=== PATIENT | female | born 1980 | race Two or more races ===

== ENCOUNTER 2024-03-22 18:33 | Emergency (ER) | payer MEDICAID, OTHER ==
[~2024-03-22] VITALS: Ht 167.6 cm; Wt 106.0 kg
[2024-03-22] MEDS ORDERED: HYDR-4902 PO (23:39)
[2024-03-22] MEDS ORDERED: ZOFR4T PO (23:39)
[2024-03-22] MEDS: PROCHLORPERAZINE MALEATE 10 MG TAB PO ONE (23:45)
[2024-03-22] MEDS: HYDROcodone-ACET 5/325MG TAB PO ONE (23:45)
[2024-03-23] MEDS: KETOROLAC TROMETH 60MG/2ML VIAL IM ONE (00:20)
[2024-03-23 01:17] VITALS: TEMP 98
[2024-03-23] MEDS: cloNIDine HCL 0.1 MG TAB PO ONE (01:30)
[2024-03-23 02:30] VITALS: BP 155/83; PULSE 63; RESP 18; O2SAT 98
== END 2024-03-23 03:29 | disposition home or self-care (01) ==
LOC: ER 18:33
DX: R51.9 Headache, unspecified (principal)
CPT/HCPCS: 70450; 96372; 99285; J1885

== ENCOUNTER 2025-02-21 21:35 | Emergency (ER) | payer SELFPAY ==
[~2025-02-21] VITALS: Ht 157.5 cm; Wt 106.5 kg
[~2025-02-21 21:35] MED LIST: HYDR-4902 PO; ZOFR4T PO
[2025-02-21 22:54] LABS: Basophils # (auto) 0.1 10 ^3/uL (0-0.2); Basophils % (auto) 1.1 % (0.0-2.0); Eosinophils # (auto) 0.1 10 ^3/uL (0-0.8); Eosinophils % (auto) 1.5 % (0.0-7.0); Hematocrit 33.7 % (36.0-46.0); Hemoglobin 10.7 g/dL (12.2-16.2); Lymphocytes # (auto) 2.9 10 ^3/uL (0.4-5.4); Lymphocytes % (auto) 28.7 % (10.0-50.0); Mean Corpuscular Hemoglobin 21.7 pg (28.0-32.0); Mean Corpuscular Hgb Conc. 31.9 g/dL (32.0-36.0); Monocytes # (auto) 0.6 10 ^3/uL (0-1.3); Monocytes % (auto) 6.2 % (0.0-12.0); Neutrophils # (auto) 6.2 10 ^3/uL (1.6-8.6); Neutrophils % (auto) 62.5 % (37.0-80.0); Nucleated Red Blood Cells % 0.1 %; Platelet Count (auto) 360 10^3/uL (140-450); Red Blood Cells 4.96 10^6/uL (4.0-5.20); Red Cell Distribution Width 16.8 % (11.8-14.3)
[2025-02-21 23:23] LABS: Chloride 101 mmol/L (98-107); Sodium 138 mmol/L (136-145)
[2025-02-21 23:24] LABS: Anion Gap 10 (5-15); Calcium 9.5 mg/dL (8.7-10.4); Carbon Dioxide 27 mmol/L (20-31); Potassium 3.3 mmol/L (3.5-5.1)
[2025-02-21 23:29] LABS: BUN/Creatinine Ratio 18.2 (10.0-20.0); Blood Urea Nitrogen 12 mg/dL (9-23)
[2025-02-21 23:31] LABS: Glucose 186 mg/dL (74-106)
--- NOTE | 2025-02-22 00:31 | ED.PDOC ---
History of Present Illness HPI Comments 44-year-old, morbidly obese female, with a history of DM and HTN, presents with complaint of hypertension, hyperglycemia, chest pain, headache, congestion, and nausea, since Saturday night She endorses on checking and noticing her blood pressure and blood glucose levels being elevated (160s/90s and 230, respe ctively), today, after having other aforementioned symptoms since the evening of February 19, 2025. She further reports on having sensation of her ears being �clogged" and describes her pain as pressure-like in quality. She informs of running out of her losartan on February 17, 2025 and recently obtaining a refill and taking her prescription dosage, today, at 1500. She is having any shortness of breath, palpitations, vision or speech changes, vomiting, or further associated symptoms at this time. Chief Complaint: High Blood Pressure Time Seen by MD: 22:20 Primary Care Provider: NONE Reviewed Notes: Nurses Notes, Medications, Allergies Allergies: Coded Allergies: NO KNOWN ALLERGIES (Unverified , 03/22/24) Home Meds Active Scripts Ondansetron Odt 4MG Tab (ZOFRAN PO) 4 Mg Tb, 1 TAB PO Q8HPRN PRN, #8 TAB as needed for nausea vomiting ODT TAB-DISSOLVE IN MOUTH, THEN SWALLOW Prov:FE CARPENTER NP 03/22/24 Hydrocodone-Acetaminophen (Hydrocodone Bitartrate/AC 5-325 mg) 1 Tab Tab, 1 TAB PO Q6HPRN PRN, #8 TAB as needed for pain Prov:FE CARPENTER VENDING STAND SUPERVISOR 03/22/24 Information Source: Patient Mode of Arrival: Ambulatory Severity: Moderate Duration: Since onset Prehospital treatment: None Review of Systems: REVIEW OF SYSTEMS: No fever, no chills, HEENT: Congestion. No neck pain, no blurred vision Cardiac: chest pain. No palpitations. Lungs: No shortness of breath, GI: Nausea. No abdominal pain, no vomiting Musculoskeletal: No joint pain , no back pain Skin: No rash, no wound Neuro: headache, no dizziness, no syncope Vital Signs Vital Signs Date Time Temp Pulse Resp B/P (MAP) Pulse Ox O2 Delivery O2 Flow Rate FiO2 02/22/25 02:25 98.2 72 16 136/61 (86) 97 98.2 02/22/25 00:47 Room Air* 0 21 Physical Exam General: Awake, alert and oriented. No acute distress. Skin: Skin in warm, dry and intact without rashes or lesions. HEENT: The head is normocephalic and atraumatic. Conjunctivae are clear without exudates or hemorrhage. Sclera is non-icteric. Neck: Normal range of motion. No JVD. Cardiac: Regular rate Respiratory: No signs of respiratory distress. No Stridor. Gastrointestinal: No abdominal tenderness. Extremities: Upper and lower extremities are atraumatic in appearance without deformity. Neurological: The patient is awake, alert and oriented to person, place, and time with normal speech. Speech is clear. There is no facial asymmetry. Psychiatric: Appropriate mood and affect. Good judgement and insight. Past Medical History PAST MEDICAL HISTORY: DM, HTN Surgical History: Denies all surgeries SERVICES TECH History: No Pertinent SERVICES TECH History Family History Family History: Unknown Social History Smoker: Non-Smoker Alcohol: Denies ETOH Use Drugs: Denies Drug Use Lives In: Home Was a procedure done? Was a procedure done?: No EKG EKG : Pulse Rate (adult): 69 Jud: Normal Cardiac Rhythm: NSR Block: None Hypertrophy: None ST: Normal Differential Dx Considerations may include: Differential diagnoses considered include acute ischemic coronary syndrome, aortic dissection, cardiac tamponade, mediastinitis, pulmonary embolus, pneumothorax, tension pneumothorax, esophageal rupture, coronary artery vasospasm, myocarditis, pericarditis, pneumonia, pulmonary edema, esophageal tear, pancreatitis, aortic stenosis, dilated cardiomyopathy, hypertrophic cardiomyopathy, mitral valve prolapse, malignancy, pleuritis, pneumomediastinum, primary pulmonary hypertension, cholecystitis, esophageal spasm, esophagus, gastritis, GERD, peptic ulcer disease, costochondritis, fibromyalgia, rib fracture, herpes zoster, radicular syndromes, thoracic outlet syndrome, somatization. X-Ray, Labs, Meds, VS Vital Signs Date Time Temp Pulse Resp B/P (MAP) Pulse Ox O2 Delivery O2 Flow Rate FiO2 02/22/25 02:25 98.2 72 16 136/61 (86) 97 98.2 02/22/25 00:47 75 20 98 Room Air* 0 21 02/22/25 00:37 98.6 76 20 157/87 (110) 96 98.6 02/22/25 00:31 69 02/21/25 22:09 69 02/21/25 21:55 98.0 76 16 161/87 (111) 96 98.0 Lab Test 02/21/25 22:42 Range/Units White Blood Count 10.0 4.4-10.8 10^3/uL Red Blood Count 4.96 4.0-5.20 10^6/uL Hemoglobin 10.7 L 12.2-16.2 g/dL Hematocrit 33.7 L 36.0-46.0 % Mean Corpuscular Volume 68.0 L 80.0-100.0 fL Mean Corpuscular Hemoglobin 21.7 L 28.0-32.0 pg Mean Corpuscular Hemoglobin Concent 31.9 L 32.0-36.0 g/dL Red Cell Distribution Width 16.8 H 11.8-14.3 % Platelet Count 360 140-450 10^3/uL Mean Platelet Volume 7.7 6.9-10.8 fL Neutrophils (%) (Auto) 62.5 37.0-80.0 % Lymphocytes (%) (Auto) 28.7 10.0-50.0 % Monocytes (%) (Auto) 6.2 0.0-12.0 % Eosinophils (%) (Auto) 1.5 0.0-7.0 % Basophils (%) (Auto) 1.1 0.0-2.0 % Neutrophils # (Auto) 6.2 1.6-8.6 10 ^3/uL Lymphocytes # (Auto) 2.9 0.4-5.4 10 ^3/uL Monocytes # (Auto) 0.6 0-1.3 10 ^3/uL Eosinophils # (Auto) 0.1 0-0.8 10 ^3/uL Basophils # (Auto) 0.1 0-0.2 10 ^3/uL Nucleated Red Blood Cells 0.1 % Sodium Level 138 136-145 mmol/L Potassium Level 3.3 L 3.5-5.1 mmol/L Chloride Level 101 98-107 mmol/L Carbon Dioxide Level 27 20-31 mmol/L Anion Gap 10 5-15 Blood Urea Nitrogen 12 9-23 mg/dL Creatinine 0.66 0.550-1.02 mg/dL Glomerular Filtration Rate Calc 109 >90 mL/min BUN/Creatinine Ratio 18.2 10.0-20.0 Serum Glucose 186 H 74-106 mg/dL Calcium Level 9.5 8.7-10.4 mg/dL Troponin I High Sensitivity 3 L </=34 ng/L Current Medications Medications (Trade) Dose Ordered Sig/Michelle Route Start Time Stop Time Status Last Admin Potassium Bicarbonate (Klor-Con/Ef) 50 meq ONCE ONCE PO 02/22/25 00:15 02/22/25 00:16 DC 02/22/25 00:44 [place] [id number] Ph: [phone] DIAGNOSTIC IMAGING Diagnostic Imaging Report : [id number] Signed PATIENT: TERE ROBLESACCT: [id number] UNIT: [id number] : 1980 LOC: ER ROOM / BED: / AGE / SEX: 44 / F ADM STATUS: REG ER SERVICE 24 ORDERING PHYSICIAN: MATTHEW MIMS MD PROCEDURE(s): CXR1 - CHEST XRAY 1 VIEW REASON: Chest pain ORDER NUMBER(s): [id number], ACCESSION NUMBER(s): [id number] CHEST RADIOGRAPH Indication: Chest pain Technique: Single frontal view of the chest was obtained COMPARISON: None FINDINGS: Lines and Tubes: None Lungs: Clear Pleura: No effusion. No pneumothorax. Cardiomediastinal contours: Unremarkable IMPRESSION: No abnormality demonstrated. ATED BY: STEVEN HERNANDEZ MD DICTATED DATE/TIME: 02/22/2533 SIGNED BY: STEVEN HERNANDEZ MD SIGNED DATE/TIME: 02/22/2533 CC: Images Reviewed?: Images reviewed and evaluated by me (Independent interpretation of chest x-ray: No acute disease) Time of 1ST Reevaluation: 22:50 Reevaluation 1ST: Unchanged Patient Education/Counseling: Need For Follow Up Family Education/Counseling: No Family Present Departure 1 Departure Time of Disposition: 01:27 Impression: Primary Impression: Chest pain Disposition: 01 HOME / SELF CARE / HOMELESS Condition: Stable Additional Instructions: INSTRUCCIONES DE AUBREE DE Urgencias Instrucciones: Kimberlee atentamente todas las instrucciones proporcionadas en vicky paquete. Aunque le hayan dado el aubree del Departamento de Emergencias, esto no significa que tenga un "certificado de buena james". Hoy no se gonzalez realizado franc�n diagn�stico definitivo para noemy s�ntomas. Es posible que est�s en proceso de desarrollar reji enfermedad grave. Es por eso que debe regresar al servicio de urgencias sin falta si presenta alg�n s�ntoma nuevo o que empeora (especialmente si noemy s�ntomas incluyen dolor en el pecho, dificultad para respirar, dolor abdominal, fiebre, dolor de nadya, confusi�n, dificultad para cristina o caminar). Tambi�n es muy importante que consulte a un m�dico de atenci�n primaria dentro de los pr�ximos 3 a 5 d�as para realizar un seguimiento. Si no puede conseguir reji derrick, regrese al servicio de urgencias para reji nueva evaluaci�n. Dolor en el pecho: Instrucciones de cuidado Descripci�n general Hay muchas cosas que pueden causar dolor en el pecho. Algunas no son graves y mejoran por s� solas en unos d�as. Sin embargo, algunos tipos de dolor en el pecho requieren m�s pruebas y tratamiento. Es posible que aragon m�dico le haya recomendado reji visita de seguimiento en los pr�ximos d�as. Si no mejora, es posible que necesite m�s pruebas o tratamiento. Aunque aragon m�dico le haya dado de aubree, debe estar atento a cualquier problema. El m�dico le realiz� reji revisi�n exhaustiva, skip a veces pueden surgir problemas m�s adelante. Si presenta s�ntomas nuevos o si estos no mejoran, busque atenci�n m�dica de inmediato. Si tiene un dolor o presi�n en el pecho peor o diferente que dura m�s de 5 minutos o si se desmay� (perdi� el conocimiento), llame al 911 o busque otra ayuda de emergencia de inmediato. Reji visita m�dica es solo un paso en aragon tratamiento. Incluso si se siente mejor, debe seguir las recomendaciones de aragon m�dico, meg asistir a todas las citas de seguimiento sugeridas y sulma los medicamentos exactamente meg se le indique. [place] le ayudar� a recuperarse y a prevenir problemas futuros. �C�mo puedes cuidarte en casa? Descansa hasta que te sientas mejor. [place] aragon medicamento exactamente meg se lo recetaron. Llame a aragon m�dico si yamila que tiene alg�n problema con aragon medicamento. No conduzca despu�s de sulma un analg�sico recetado. �Cu�ndo debes pedir ayuda? Llame al 911 si: Te desmayaste (perdiste el conocimiento). Tienes dificultad grave para respirar. Tiene s�ntomas de un ataque card�aco. Estos pueden incluir: Dolor o presi�n en el pecho, o reji sensaci�n extra�a en el pecho. Transpiraci�n. Dificultad para respirar. N�useas o v�mitos. Dolor, presi�n o reji sensaci�n extra�a en la espalda, el devan, la ana luisa�bula o la parte superior del abdomen o en cortes o ambos hombros o brazos. Mareo o debilidad repentina. Un ritmo card�aco r�pido o irregular. Despu�s de llamar al 911 , el operador podr�a indicarle que mastique reji aspirina para adultos o de 2 a 4 aspirinas de dosis baja. Espere la ambulancia. No intente conducir. Llame a aragon m�dico ahora o busque atenci�n m�dica inmediata si: Tienes alguna dificultad para respirar. Tiene un dolor en el pecho nuevo o diferente. Se siente mareado o aturdido o meg si se pudiera desmayar. Preste atenci�n de cerca a los cambios en aragon james y aseg�rese de comunicarse con aragon m�dico si no mejora meg se esperaba. Cr�ditos para el dolor de pecho: Instrucciones de cuidado Actualizado al: 31 2023 Autor: Personal de [facility] Junta de revisi�n cl�armani Toda la educaci�n de [facility] es revisada por un equipo que incluye m�dicos, enfermeras, profesionales avanzados, dietistas registrados y o tros profesionales de la james. Discharged With: Self Comments 44-year-old female with chest pain for several days. EKG negative for signs of ischemia. High sensitivity troponin negative. CXR shows no acute process. Presentation not suggestive of acute coronary syndrome, pulmonary embolism or aortic dissection. Patient improved at time of discharge. No hypoxia, respiratory distress or dyspnea at discharge. Patient able to ambulate without difficulty. Extensive evaluation was performed in attempt to identify or rule out: (See differential diagnosis section) The following tests were ordered, and results were reviewed by me and discussed with patient: (See diagnostic results section) The following test were independently interpreted by me: EKG, chest x-ray I reviewed and agreed with the following test results read by other providers: Chest x-ray I reviewed the following notes from the pt's past medical encounters: March 22, 2024 encounter for headache Additional information was gathered from interviewing the following independent historians: N/A Discussion of management or test interpretation with external physician/other qu alified health career development coordinator/teacher: N/A Decision regarding hospitalization or escalation of hospital level of care: Risks and benefits of admission for further treatment of patient's condition was considered however due to patient's stable condition patient will be discharged to follow up closely or return to care for worsening of condition or inability to follow up. Critical Care Note Critical Care Time?: No Stability Stability form required: No Heart Score Heart Score: Heart Score Response (Comments) Value History N/A 0 EKG N/A 0 Age N/A 0 Risk Factors N/A 0 Troponin N/A 0 Total 0 I personally scribed for MATTHEW MIMS MD ([email or web address]) on 02/22/25 at 00:31. Electronically submitted by Rubio Guillory ([email or web address]). I personally scribed for MATTHEW MIMS MD ([email or web address]) on 02/22/25 at 01:34. Electronically submitted by Rubio Guillory ([email or web address]). MATTHEW MIMS MD February 22, 2025 00:31
--- NOTE | 2025-02-22 00:36 | DVH ---
CHEST RADIOGRAPH Indication: Chest pain Technique: Single frontal view of the chest was obtained COMPARISON: None FINDINGS: Lines and Tubes: None Lungs: Clear Pleura: No effusion. No pneumothorax. Cardiomediastinal contours: Unremarkable IMPRESSION: No abnormality demonstrated.
[2025-02-22] MEDS: ONDANSETRON ODT 4 MG TAB PO ONE (00:43)
[2025-02-22] MEDS: POTASSIUM EFFERVESENT TAB 25 MEQ PO ONE (00:44)
[2025-02-22] MEDS: ACETAMINOPHEN 325 MG TAB PO ONE (00:44)
[2025-02-22] MEDS: ASPirin 81 mg TAB PO ONE (00:45)
[2025-02-22 00:47] VITALS: PULSE 75; RESP 20; O2SAT 98
[2025-02-22 02:25] VITALS: BP 136/61; PULSE 72; RESP 16; TEMP 98.2; O2SAT 97
--- NOTE | 2025-02-22 14:44 | ECG ---
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
== END 2025-02-22 02:34 | disposition home or self-care (01) ==
LOC: ER 21:38
DX: R07.9 Chest pain, unspecified (principal); R51.9 Headache, unspecified; R11.0 Nausea; E11.65 Type 2 diabetes mellitus with hyperglycemia; I10 Essential (primary) hypertension; E66.01 Morbid (severe) obesity due to excess calories; Z79.899 Other long term (current) drug therapy
CPT/HCPCS: 36415; 71045; 80048; 84484; 85025; 93005; 99285; Q0162